=== PATIENT | male | born 1995 | race Caucasian/White ===

== ENCOUNTER 2018-11-30 18:51 | Emergency (ER) | payer BC ==
[~2018-11-30] VITALS: Ht 180.3 cm; Wt 92.2 kg
[2018-11-30 19:28] VITALS: Ht 180.3 cm; Wt 92.2 kg
[2018-11-30 20:33] VITALS: BP 138/71
== END 2018-11-30 20:33 | disposition home or self-care (01) ==
LOC: ED 18:51
DX: T70.29XA Other effects of high altitude, initial encounter (principal); X58.XXXA Exposure to other specified factors, initial encounter; H81.12 Benign paroxysmal vertigo, left ear
CPT/HCPCS: J7512